=== PATIENT | female | born 1950 | race Caucasian/White ===

== ENCOUNTER 2018-11-02 09:59 | Day surgery (SDC) | payer MEDICARE ==
[2018-11-01 10:29] LABS: BASOPHILS # (AUTO) 0.1 X10'3 (0-0.2); BASOPHILS % (AUTO) 0.7 % (0-1); EOSINOPHILS # (AUTO) 0.1 X10'3 (0-0.9); EOSINOPHILS % (AUTO) 1.5 % (0-6); HEMATOCRIT 35.3 % (35.0-45.0); HEMOGLOBIN 11.4 g/dl (12.0-16.0); LYMPHOCYTES # (AUTO) 1.6 X10'3 (1.1-4.8); LYMPHOCYTES % (AUTO) 16.8 % (21-51); MEAN CORPUSCULAR HEMOGLOBIN 25.4 PG (27.0-31.0); MEAN CORPUSCULAR HGB CONC 32.3 g/dL (33.0-36.5); MEAN CORPUSCULAR VOLUME 78.7 FL (78-98); MEAN PLATELET VOLUME 8.5 FL (7.4-10.4); MONOCYTES # (AUTO) 0.6 X10'3 (0-0.9); MONOCYTES % (AUTO) 6.5 % (2-12); NEUTROPHILS % (AUTO) 74.5 % (42-75); PLATELET COUNT 194 X10'3 (140-440); RED BLOOD COUNT 4.49 X10'6 (4.20-5.60); RED CELL DISTRIBUTION WIDTH 15.7 % (11.5-14.5); WHITE BLOOD COUNT 9.4 X10'3 (4.5-11.0)
[2018-11-01 10:41] LABS: ALBUMIN 3.8 G/DL (3.4-5.0); ANION GAP 9 (8-16); BLOOD UREA NITROGEN 23 MG/DL (7-18); BUN/CREATININE RATIO 27.1 (6.6-38.0); CALCIUM 8.8 MG/DL (8.5-10.1); CHLORIDE 103 MMOL/L (99-107); CREATININE 0.85 MG/DL (0.40-0.90); GLUCOSE 198 MG/DL (70-104); POTASSIUM 4.9 MMOL/L (3.5-5.1); SODIUM 137 MMOL/L (135-145); TOTAL CARBON DIOXIDE 25.4 MMOL/L (24-32); eGFR 67 ML/MIN
[2018-11-01 11:01] LABS: PARTIAL THROMBOPLASTIN TIME 28 SECONDS (22-32)
[~2018-11-02] VITALS: Ht 163.8 cm; Wt 106.5 kg
[2018-11-02] VITALS (11 sets, daily range): BP systolic 141–172; BP diastolic 51–77
[2018-11-02] MEDS ORDERED: diphenhydrAMINE 25mg capsule PO PRN (10:35)
[2018-11-02] MEDS ORDERED: LORazepam 0.5 MG tablet PO PRN (10:35)
[2018-11-02] MEDS ORDERED: normal saline 1,000 ML IV SCH (10:35)
[2018-11-02] MEDS ORDERED: ASPI-1265 PO (11:10)
[2018-11-02] MEDS ORDERED: CITA40TA11 PO (11:10)
[2018-11-02] MEDS ORDERED: CALC600T12 PO (11:10)
[2018-11-02] MEDS ORDERED: FENO160T13 PO (11:10)
[2018-11-02] MEDS ORDERED: OMEP20TA5 PO (11:10)
[2018-11-02] MEDS ORDERED: METF-436 PO (11:10)
[2018-11-02] MEDS ORDERED: NAPR250T4 PO (11:10)
[2018-11-02] MEDS ORDERED: INSU100V5 IJ (11:10)
[2018-11-02] MEDS ORDERED: CHOL10002 PO (11:10)
[2018-11-02] MEDS ORDERED: LISI10TA4 PO (11:10)
[2018-11-02] MEDS ORDERED: LIDOcaine/PRILOcaine 5gm cream TP ONE (11:15)
[2018-11-02] MEDS ORDERED: LIDOcaine 1% (10mg/ml)w/preservative injection 20ml MDV ONE (12:05)
[2018-11-02] MEDS ORDERED: verapamil 2.5 mg/ml inj IV ONE (12:05)
[2018-11-02] MEDS ORDERED: heparin 1,000unit/ml 10ml vial 10 ML ONE (12:05)
[2018-11-02] MEDS ORDERED: fentaNYL/PF 50MCG/1 ML 2ML syringe ONE (12:05)
[2018-11-02] MEDS ORDERED: nitroGLYCERIN-Tridil 50MG/D5W 250 ML IV ONE (12:05)
[2018-11-02] MEDS ORDERED: iohexol 350MG/ML 100ml bottle IV ONE (12:05)
[2018-11-02] MEDS ORDERED: iohexol 350 MG/ML 50ML vial IV ONE (12:05)
[2018-11-02] MEDS ORDERED: midazolam 2 mg/2 ml injection ONE (12:05)
[2018-11-02] MEDS ORDERED: hydrocortisone sod succ/PF 100mg/2ml inj. ONE (12:51)
[2018-11-02] MEDS ORDERED: hydrALAZINE 20mg/ml inj. IV ONE (13:10)
[2018-11-02 13:31] LABS: ISTAT HGB ART 10.9 g/dl (12.0-16.0); ISTAT Hct ART 32 %PCV (35-48); ISTAT O2 SATURATION ARTERIAL 98 % (95-98); ISTAT SOURCE ART
[2018-11-02 13:31] LABS: ISTAT Hct MIX 31 %PCV (35-48); ISTAT O2 SATURATION MIX VENOUS 71 % (60-80); ISTAT SOURCE MIX
[2018-11-02] MEDS ORDERED: furosemide 20 MG/2 ML vial IV ONE (14:05)
== END 2018-11-02 18:50 | disposition home or self-care (01) ==
LOC: SSTAY O 09:59
PROVIDERS: ATTEND Internal Medicine Cardiovascular Disease
DX: I25.10 Atherosclerotic heart disease of native coronary artery without angina pectoris (principal); E11.9 Type 2 diabetes mellitus without complications; I10 Essential (primary) hypertension; E66.9 Obesity, unspecified; D64.9 Anemia, unspecified; E78.5 Hyperlipidemia, unspecified; Z68.39 Body mass index [BMI] 39.0-39.9, adult
CPT/HCPCS: 36415; 80048; 82803; 82948; 85014; 85025; 85610; 85730; 93005; 93460; 99152; 99153; C1769; C1894; J0360; J1644; J1720; J1940; J2001; J2250; J3010; J7030; Q0163; Q9967; A4620; A5120; C1794; J3490